=== PATIENT | female | born 1970 ===

== ENCOUNTER 2020-06-23 10:58 | Outpatient (CLI) | payer BC | END 2020-06-23 10:59 | disposition home or self-care (01) | LOC: MADRAD 10:58 | PROVIDERS: ATTEND Family Medicine | DX: M47.26 Other spondylosis with radiculopathy, lumbar region (principal) | CPT/HCPCS: 72100 ==

== ENCOUNTER 2020-08-15 10:56 | Outpatient (CLI) | payer BC | END 2020-08-15 10:57 | disposition home or self-care (01) | LOC: MADRAD 10:56 | PROVIDERS: ATTEND Family Medicine | DX: M25.551 Pain in right hip (principal); M16.11 Unilateral primary osteoarthritis, right hip ==